=== PATIENT | female | born 1935 | race Hispanic/Latino ===

== ENCOUNTER 2016-07-16 18:24 | Emergency (ER) | payer MEDICAID, MEDICARE ==
[2016-07-16 18:40] VITALS: TEMP 98.6; O2SAT 99; BMI 23.0
[2016-07-16] MEDS ORDERED: Oxymetazoline 0.05% Nasal Spray (30 ml) NS STA (19:03)
[2016-07-16] MEDS ORDERED: Silver Nitrate Topical - Stick TOP ONE (19:03)
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
[2016-07-16 19:55] LABS: ADD MANUAL DIFF? NO
[2016-07-16 20:09] LABS: ALB/GLOB RATIO 1.4 (1.1-1.8); ALKALINE PHOSPHATASE 73 U/L (38-133); ALT/SGPT 28 U/L (7-56); AST/SGOT 28 U/L (15-39); BILIRUBIN,TOTAL 0.4 mg/dL (0.2-1.3); BLOOD UREA NITROGEN 15 mg/dL (7-21); CARBON DIOXIDE 27 mmol/L (21-33); CHLORIDE 104 mmol/L (95-110); GFR AFRICAN-AMERICAN > 60; GLUCOSE,RANDOM 97 mg/dL (70-110); POTASSIUM 4.4 mmol/L (3.6-5.0); SODIUM 138 mmol/L (132-148); TOTAL PROTEIN 6.5 g/dL (5.8-8.3)
[2016-07-16 20:20] LABS: BASO # 0.01 K/mm3 (0.0-2.0); BASO % 0.2 % (0.0-3.0); EOS % 0.5 % (1.5-5.0); GRAN # 4.52 (1.4-6.5); GRAN % 71.5 % (50.0-68.0); HEMATOCRIT 32.2 % (36.0-48.0); LYMPH # 1.3 (1.2-3.4); LYMPH % 21.2 % (22.0-35.0); MEAN CORPUSCULAR HEMOGLOBIN 28.5 pg (25.0-35.0); MEAN CORPUSCULAR HGB CONC 31.4 g/dl (31.0-37.0); MONO # 0.4 (0.1-0.6); MONO % 6.6 % (1.0-6.0); PLATELET COUNT 317 10^3/uL (120.0-450.0); RED CELL DISTRIBUTION WIDTH 14.2 % (11.5-14.5); WHITE BLOOD COUNT 6.3 10^3/ul (4.5-11.0)
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
[2016-07-16 21:17] VITALS: BP 157/70; PULSE 68; RESP 18
[2016-07-16 21:44] LABS: INR 1.03 (0.93-1.08); PARTIAL THROMBOPLASTIN TIME 25.9 Seconds (23.7-30.8)
== END 2016-07-16 22:12 | disposition home or self-care (01) ==
LOC: ED 18:24
DX: R04.0 Epistaxis (principal)

== ENCOUNTER 2017-02-03 21:18 | Emergency (ER) | payer MEDICAID, OTHER ==
[2017-02-03 21:18] VITALS: BMI 23.0
[2017-02-03 21:47] VITALS: RESP 18; TEMP 98.2; O2SAT 98
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
[2017-02-03] MEDS ORDERED: TDAP Vaccine 0.5 mL Syr IM ONE (22:06)
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
[2017-02-04 07:17] VITALS: BP 156/66; PULSE 83
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
== END 2017-02-04 03:09 | disposition home or self-care (01) ==
LOC: ED 21:18
DX: S00.83XA Contusion of other part of head, initial encounter (principal); S00.81XA Abrasion of other part of head, initial encounter; S80.01XA Contusion of right knee, initial encounter; S60.221A Contusion of right hand, initial encounter; W01.0XXA Fall on same level from slipping, tripping and stumbling without subsequent striking against object, initial encounter; Z86.711 Personal history of pulmonary embolism

== ENCOUNTER 2018-05-02 11:52 | Outpatient (CLI) | payer MEDICAID | END 2018-05-02 11:53 | disposition home or self-care (01) | LOC: RAD 11:52 | DX: I87.2 Venous insufficiency (chronic) (peripheral) (principal) ==

== ENCOUNTER 2018-07-29 13:09 | Outpatient (CLI) | payer MEDICARE, MEDICAID | END 2018-07-29 13:10 | disposition home or self-care (01) | LOC: RAD 13:09 ==